=== PATIENT | male | born 1960 | race Caucasian/White ===

== ENCOUNTER 2019-08-16 05:54 | Day surgery (SDC) | payer OTHER ==
[2019-08-16] MEDS ORDERED: SODIUM CHLORIDE 0.9% 1000 ML 1,000 ML IV SCH (06:48)
--- NOTE | 2019-08-16 10:58 | Cat Scan Report ---
CT angio abd/femoral abd aorta INDICATION: atherosclerosis of [place] artery of limb. TECHNIQUE: All CT scans at this location are performed using CT dose reduction for ALARA by means of automated e xposure control. Precontrast localizer images were obtained, followed by axial and 3-dimensional dennis nstruction images, performed at an independent workstation by the nanotechnology engineering technologist after IV bolus cont rast injection. COMPARISON: None available. FINDINGS: Visualized portions of the thoracic aorta are normal. Abdominal aorta is normal in caliber throughout its course. Celiac axis, SMA, bilateral renal arteries and LUCAS are all widely patent. Moderate atherosclerosis is demonstrated at the aortic bifurcation, and there is very short segment b ut high-grade stenosis at the bifurcation of the right common iliac artery, resulting in high-grade s tenosis at the origin of both the right internal and external iliac arteries. Distal to this very short segment stenosis, the right external iliac artery is widely patent. Right c ommon, deep and superficial femoral arteries are also patent, with no significant stenosis. The right SFA shows only very mild stenosis at the abductor canal. Right popliteal artery is normal in caliber , and there is three-vessel runoff to the right lower lobe, without significant stenosis. The left common iliac artery is only minimally stenotic. No significant stenosis of the left internal or external iliac artery. Left common, deep and superficial femoral arteries are widely patent. The left SFA demonstrates only mild stenosis at the level of the abductor canal. Left popliteal artery is widely patent, and there is very adequate three-vessel runoff to the left lower leg, with no signifi cant stenosis. IMPRESSION: 1. Very short segment but high-grade stenosis of the right common iliac artery at its bifurcation, re sulting in high-grade stenosis at the origin of the right internal and external iliac arteries. Right internal and external iliac arteries are otherwise normal in caliber. 2. Minimal stenosis of both superficial femoral arteries at the level of the abductor canals. 3. Arteries are otherwise widely patent. Signer Name: Alfredo Perez MD Signed: 08/16/2019 10:53 AM Workstation Name: [id number]
[2019-08-16 13:10] VITALS: BP 172/91
== END 2019-08-16 13:10 | disposition home or self-care (01) ==
LOC: CATHLABREC 05:54 → EDSTATUS 07:00 → CATHLABREC 13:10
PROVIDERS: ATTEND Radiology Diagnostic Radiology
DX: I70.213 Atherosclerosis of native arteries of extremities with intermittent claudication, bilateral legs (principal); I70.8 Atherosclerosis of other arteries; E78.00 Pure hypercholesterolemia, unspecified; I10 Essential (primary) hypertension; F41.9 Anxiety disorder, unspecified; Z87.891 Personal history of nicotine dependence; Z79.82 Long term (current) use of aspirin; Z79.84 Long term (current) use of oral hypoglycemic drugs; Z98.890 Other specified postprocedural states
CPT/HCPCS: 36415; 75635; 82565; 84520; 96360; 96361; J7030; Q9967

== ENCOUNTER 2019-08-30 05:53 | Day surgery (SDC) | payer OTHER ==
[2019-08-30] MEDS ORDERED: SODIUM CHLORIDE 0.9% 1000 ML 1,000 ML IV SCH (07:00)
[2019-08-30 07:33] LABS: INR 1.02 (0.87-1.13)
[2019-08-30 07:34] LABS: Partial Thromboplastin Time 29.2 Sec. (24.2-36.6)
[2019-08-30 07:37] LABS: Basophils # (Auto) 0.1 K/mm3 (0.0-0.1); Basophils % (Auto) 0.8 % (0.0-1.8); Eosinophils # (Auto) 0.3 K/mm3 (0.0-0.4); Hemoglobin 15.3 gm/dl (11.8-15.2); Lymphocytes % (Auto) 27.4 % (13.4-35.0); Mean Corpuscular HGB Conc 33 % (32-34); Mean Corpuscular Volume 92 fl (84-94); Monocytes # (Auto) 0.8 K/mm3 (0.0-0.8); Monocytes % (Auto) 7.7 % (0.0-7.3); Platelet Count 323 K/mm3 (140-440); Red Blood Count 4.98 M/mm3 (3.65-5.03); Red Cell Distribution Width 14.2 % (13.2-15.2)
[2019-08-30 08:02] LABS: Calcium 9.4 mg/dL (8.4-10.2)
[2019-08-30] MEDS ORDERED: HEPARIN/NS 5000 UNIT/500ML 1,000 ML IR ONE (08:23)
[2019-08-30] MEDS ORDERED: HEPARIN 10,000 UNITS/10 ML VIAL ONE (08:23)
[2019-08-30] MEDS: fentaNYL 100 MCG/2 ML INJ ONE ×6 (09:09→09:53)
[2019-08-30] MEDS: MIDAZOLAM 2 MG/2 ML INJ ONE ×6 (09:09→09:53)
[2019-08-30] MEDS: LIDOCAINE 1%/EPINEPHRINE 1:100,000 VIAL (20 ML) INFILTRATI ONE ×2 (09:09→09:17)
[2019-08-30] MEDS ORDERED: ASPIRIN EC 81 MG TAB PO ONE ×2 (10:22→10:27)
[2019-08-30] MEDS ORDERED: CLOPIDOGREL 300 MG TAB ONE (10:22)
[2019-08-30] MEDS ORDERED: CLOPIDOGREL 300 MG TAB PO ONE (10:26)
--- NOTE | 2019-08-30 10:32 | Short Stay Summary ---
Short Stay Documentation Date of service: 08/30/19 Narrative H&P: 59-year-old male with blue toe syndrome with multifocal arterial disease of the right lower extremity with chronic kidney disease requiring staged interventions. Plan for right iliac stent graft placement today. - History Principal diagnosis: Blue toe syndrome, PVD with ulceration H&P: obtained from office - Allergies and Medications Current Medications: Allergies No Known Allergies Allergy (Verified 08/30/19 06:55) Home Medications Medication Instructions Recorded Confirmed Last Taken Type Aspirin [Adult Aspirin] 81 mg PO DAILY 08/16/19 08/16/19 08/26/19 History AtorvaSTATin [Lipitor] 20 mg PO DAILY 08/16/19 08/30/19 08/26/19 History Metformin HCl [metFORMIN] 1,000 mg PO DAILY 08/16/19 08/30/19 08/26/19 History Sitagliptin Phosphate [Januvia] 100 mg PO DAILY 08/16/19 08/30/19 08/26/19 History amLODIPine [Norvasc] 10 mg PO DAILY 08/16/19 08/30/19 08/26/19 History cilostazoL [Pletal] 100 mg PO DAILY 08/16/19 08/30/19 08/26/19 History glipiZIDE [Glucotrol] 10 mg PO QDAY 08/16/19 08/30/19 08/26/19 History lisinopriL [Zestril TAB] 40 mg PO DAILY 08/16/19 08/30/19 08/26/19 History Aspirin EC [Halfprin EC] 81 mg PO QDAY #30 tablet. 08/30/19 Unknown Rx Clopidogrel [Plavix] 75 mg PO QDAY #30 tablet 08/30/19 Unknown Rx Rivaroxaban [Xarelto] 2.5 mg PO DAILY 08/30/19 08/30/19 08/26/19 History Active Medications Sodium Chloride (Nacl 0.9% 1000 Ml) 1,000 mls @ 42 mls/hr IV DIRECT ADEN Last Admin: 08/30/19 09:10 Dose: 100 mls Documented by: - Physical exam General appearance: no acute distress Lungs: Normal air movement Gastrointestinal: normal Extremities: normal temperature, normal color - Brief post op/procedure progress note Date of procedure: 08/30/19 Pre-op diagnosis: Blue toe syndrome, PVD with ulceration Post-op diagnosis: same Procedure: 1. Ultrasound-guided access of the right common femoral artery. 2. Angiography of the right lower extremity. 3. Selection of the abdominal aorta with angiography 4. Stenting of the right common iliac artery with a 9 mm x 39 mm VBX stent graft 5. Angioplasty of the right common iliac artery with a 10 mm x 40 mm and 12 mm x 20 mm angioplasty balloon. 6. Angioplasty of the right external iliac artery with a 10 mm x 40 mm and 12 mm x 20 mm angioplasty balloon. 7. Closure of the right common femoral artery with a 6 German pro glide Anesthesia: local (With conscious sedation) Surgeon: KYLEE LOPEZ Estimated blood loss: minimal Condition: stable - Hospital course Hospital course: Tolerated the procedure well. We will continue IV hydration protocol pre-and post procedure. Flat for 4 hours and then can be discharged. - Disposition Condition at discharge: Stable Disposition: [id number] TO HOME OR SELFCARE - Discharge Diagnoses (1) Atherosclerotic PVD with ulceration Status: Acute (2) Blue toe syndrome of right lower extremity Status: Acute (3) Chronic kidney disease Status: Acute (4) Diabetes Status: Acute (5) Iliac artery stenosis, right Status: Acute Short Stay Discharge Plan Activity: advance as tolerated, other (Do not lift more than 10 pounds for 1 week) Weight Bearing Status: Weight Bear as Tolerated (Put pressure on right groin if coughing or straining during bowel movement) Diet: regular Wound: keep clean and dry, other (Keep right groin dry for 5 to 7 days. Remove pressure dressing tomorrow a.m.) Special Instructions: other (Stop taking Xarelto. Stop taking Eliquis. Start taking aspirin, Plavix, and continue taking Pletal.) Follow up with: LUIS M SHULTZ MD [Primary Care Provider] - 7 Days Prescriptions: Aspirin EC [Halfprin EC] 81 mg PO QDAY #30 tablet. Clopidogrel [Plavix] 75 mg PO QDAY #30 tablet
--- NOTE | 2019-08-30 10:46 | Operative Report ---
Operative Report Operative Report: EXAM: 1. Ultrasound-guided access of the right common femoral artery. 2. Angiography of the right lower extremity. 3. Selection of the abdominal aorta with angiography 4. Stenting of the right common iliac artery with a 9 mm x 39 mm VBX stent graft 5. Intravascular ultrasound of the aorta, right common iliac artery, and right external iliac artery 6. Angioplasty of the right common iliac artery with a 10 mm x 40 mm and 12 mm x 20 mm angioplasty balloon. 7. Angioplasty of the right external iliac artery with a 10 mm x 40 mm and 12 mm x 20 mm angioplasty balloon. 8. Closure of the right common femoral artery with a 6 [place]i pro glide DATE: 08/30/2019 PHYSICAL OPTICS TEACHER: KYLEE LOPEZ MD INDICATION: Right lower extremity critical limb ischemia with ulceration of the right fifth digit with cyanosis and severe arterial disease of the right lower extremity with an ulcerated iliac plaque. MEDICATIONS: Please see nursing report for full details. DEVICES: 9 mm x 39 mm VBX stent graft 10 mm x 40 mm angioplasty balloon 12 mm x 20 mm angioplasty balloon Intravascular ultrasound CONTRAST: 60 mL of nonionic contrast PROCEDURE: The risks, benefits, and alternatives were discussed with the patient; written informed consent was obtained. The patient was renally hydrated before the procedure. The groins were prepped and draped in a sterile fashion. Under direct ultrasound guidance, the right common femoral artery was assessed and was patent. Under direct ultrasound guidance, the right common femoral artery was accessed with a 21-gauge micropuncture needle. 0.018 inch wire was watched under fluoroscopic guidance and passed into the right external iliac artery. Needle was exchanged for transitional dilator. Digital subtraction angiography was performed to the transitional dilator demonstrating an appropriate puncture, above the bifurcation and below the inferior epigastric artery. The right common femoral artery and profunda femoral artery were patent. There is mild to moderate stenosis of the right proximal superficial femoral artery. Glidewire advantage was then passed through the transitional dilator and used to negotiate past the known severe iliac artery narrowing and into the aorta. Transitional dilator was then exchanged for a 5 [place] sheath. Catheters used to select the abdominal aorta and digital subtraction angiography was performed demonstrating patency of the infrarenal abdominal aorta, left common iliac artery, internal iliac artery, and external iliac artery. The right common iliac artery had a severe 99% distal stenosis which had an ulcerated plaque within it and was covering the internal iliac artery ostium with 99% narrowing of the internal iliac artery proximally with patency of the rest of the vessel. There is a 20 to 30% narrowing in the right proximal external iliac artery but the rest of the external iliac artery patent. The patient was heparinized. After reviewing the diagnostic images, I decided the patient required an intervention. Sheath was then exchanged for an 8 [place] radiopaque standard sheath. 9 mm x 39 mm VBX stent graft was then advanced over the wire and deployed over the right distal common iliac artery critical stenosis. Digital subtraction angiography was performed demonstrating patency of the stent but there is a 1 to 2 mm step-off of the stent with the surrounding vessels. I decided to use intravascular ultrasound for most of the rest of the procedure in order to limit contrast usage due to patient's underlying chronic renal insufficiency. 10 mm x 40 mm angioplasty balloon was used to perform angioplasty of the common iliac artery and external iliac artery. Intravascular ultrasound was used demonstrating a 1 mm step-off of the stent with the surrounding vessels. 12 mm x 20 mm angioplasty balloon at low pressure was used to perform angioplasty of the right common iliac artery and external iliac artery and the stent. Intravascular ultrasound was used demonstrating no step-off from the stent with the surrounding vessels. The stent was patent. Dilute digital subtraction angiography was then performed through the sheath demonstrating a mild to moderate proximal superficial femoral artery stenosis and a severe right popliteal artery stenosis. The runoff was not evaluated to limit contrast use. At this point, the sheath was then exchanged for 6 [place] pro glide which was used to close the arteriotomy achieving immediate hemostasis. Sterile dressing applied. Pressure dressing applied. The patient tolerated the procedure well. No immediate postprocedural complication. The right pedal pulses at the conclusion of the procedure were stronger than before consistent with no significant embolization. FINDINGS: Please see procedure note above. IMPRESSION: 1. Successful stent grafting of the right common iliac artery. 2. Successful angioplasty of the right external iliac artery. 3. Successful intravascular ultrasound of the aorta, right common iliac artery, and right external iliac artery. 4. Successful selection of the abdominal aorta.
[2019-08-30 13:39] VITALS: BP 147/92
== END 2019-08-30 14:30 | disposition home or self-care (01) ==
LOC: CATHLABREC 05:53
PROVIDERS: ATTEND Radiology Diagnostic Radiology
DX: I70.213 Atherosclerosis of native arteries of extremities with intermittent claudication, bilateral legs (principal); I70.235 Atherosclerosis of native arteries of right leg with ulceration of other part of foot; I12.9 Hypertensive chronic kidney disease with stage 1 through stage 4 chronic kidney disease, or unspecified chronic kidney disease; E11.22 Type 2 diabetes mellitus with diabetic chronic kidney disease; E11.51 Type 2 diabetes mellitus with diabetic peripheral angiopathy without gangrene; I75.021 Atheroembolism of right lower extremity; F41.9 Anxiety disorder, unspecified; Z98.890 Other specified postprocedural states; Z79.899 Other long term (current) drug therapy; Z79.84 Long term (current) use of oral hypoglycemic drugs; Z79.82 Long term (current) use of aspirin; Z87.891 Personal history of nicotine dependence
CPT/HCPCS: 36415; 37221; 37222; 37252; 37253; 75625; 75710; 80048; 85025; 85610; 85730; 99156; 99157; C1725; C1753; C1760; C1769; C1874; C1887; C1894; J1644; J2250; J3010; J7030; Q9967